=== PATIENT | female | born 1960 | race Caucasian/White ===

== ENCOUNTER 2019-01-19 00:20 | Inpatient (IN) | payer OTHER, SELFPAY ==
[2019-01-19] MEDS ORDERED: ONDANSETRON 4 MG/2 ML VIAL ONE ×3 (00:56→05:53)
[2019-01-19] MEDS ORDERED: MORPHINE 4 MG/ML SYR ONE ×3 (00:56→22:09)
[2019-01-19] MEDS ORDERED: NA CHLORIDE 0.9% 1,000 ML ONE ×2 (00:56→03:35)
[2019-01-19 01:20] LABS: Absolute Lymphocytes (CBC) 1.6 K/uL (0.7-4.9); Absolute Monocytes 0.8 K/uL (0.1-1.3); Absolute Neutrophil 10.3 K/uL (1.8-8.0); Basophils % 0.2 % (0-1.3); Eosinophils % 0.1 % (0-4.4); Hematocrit 39.9 % (36.0-45.0); Lymphocytes % 12.4 % (15.3-44.8); MPV 9.6 fL (7.6-11.3); RBC Red Blood Cell Count 4.65 M/uL (3.86-4.86)
[2019-01-19 01:32] LABS: Albumin 3.8 g/dL (3.4-5.0); Bilirubin Direct 0.2 mg/dL (0-0.2); Bilirubin Total 0.9 mg/dL (0.2-1.0); Potassium 3.8 mmol/L (3.5-5.1); Protein, Total 7.4 g/dL (6.4-8.2)
--- NOTE | 2019-01-19 02:58 | ER ---
Nurse's Notes [facility] Name: Leisa Arguello Age: 58 yrs Sex: Female : 1960 Arrival Date: 01/19/2019 Time: 00:24 Bed 6 Private MD: Filiberto Naqvi V Diagnosis: Diverticulitis of large intestine with perforation and abscess Presentation: 01/19 00:38 Presenting complaint: Patient states: bloating, lower abd pain since last night, ak1 01/17/19. pt denies N/V/D. pt denies urinary s/s. Transition of care: patient was not received from another setting of care. Onset of symptoms was January 17, 2019. Risk Assessment: Do you want to hurt yourself or someone else? Patient reports no desire to harm self or others. Initial Sepsis Screen: Does the patient meet any 2 criteria? Systolic BP < 90 mmHg. HR > 90 bpm. Care prior to arrival: None. 00:38 Method Of Arrival: Ambulatory ak1 00:38 Acuity: ANNA 3 ak1 01:28 Initial Sepsis Screen: Does the patient have a suspected source of infection? No. tl2 Patient's initial sepsis screen is negative. Triage Assessment: 00:40 General: Appears uncomfortable, Behavior is calm, cooperative. Pain: Complains of pain ak1 in suprapubic area, right lower quadrant and left lower quadrant. EENT: No signs and/or symptoms were reported regarding the EENT system. Neuro: No deficits noted. Cardiovascular: No deficits noted. Respiratory: No deficits noted. GI: Reports lower abdominal pain. : No signs and/or symptoms were reported regarding the genitourinary system. Derm: No signs and/or symptoms reported regarding the dermatologic system. Musculoskeletal: No signs and/or symptoms reported regarding the musculoskeletal system. Historical: - Allergies: 00:40 Codeine; ak1 00:40 PENICILLINS; ak1 - Home Meds: 00:40 None [Active]; ak1 - PMHx: 00:40 Diverticulitis; Kidney stones; ak1 - PSHx: 00:40 Lithotripsy; Cholecystectomy; Appendectomy; ak1 - Immunization history:: Adult Immunizations unknown. - Social history:: Smoking status: Patient/guardian denies using tobacco, Patient uses alcohol, weekly. - Ebola Screening: : No symptoms or risks identified at this time. Screenin:28 Abuse screen: Denies threats or abuse. Nutritional screening: No deficits noted. tl2 Tuberculosis screening: No symptoms or risk factors identified. Fall Risk None identified. Assessment: 00:40 General: see triage assessment. tl2 02:19 Reassessment: Patient appears in no apparent distress at this time. Patient and/or tl2 family updated on plan of care and expected duration. Pain level reassessed. Patient is alert, oriented x 3, equal unlabored respirations, skin warm/dry/pink. pt returned from CT, awaiting results Patient states feeling better. 04:00 Reassessment: Patient appears in no apparent distress at this time. Patient and/or tl2 family updated on plan of care and expected duration. Pain level reassessed. Patient is alert, oriented x 3, equal unlabored respirations, skin warm/dry/pink. 05:30 Reassessment: Patient appears in no apparent distress at this time. Patient and/or tl2 family updated on plan of care and expected duration. Pain level reassessed. Patient is alert, oriented x 3, equal unlabored respirations, skin warm/dry/pink. pt c/o nausea, new order see MAR. Vital Signs: 00:37 BP 136 / 73; Pulse 103; Resp 18; Temp 99.5(O); Pulse Ox 97% on R/A; Weight 83.91 kg ak1 (R); Height 5 ft. 5 in. (165.10 cm) (R); Pain 8/10; 01:27 BP 119 / 65; Pulse 99; Resp 18; Pulse Ox 97% on R/A; tl2 02:18 BP 126 / 73; Pulse 95; Resp 18; Pulse Ox 96% on R/A; tl2 03:53 BP 131 / 77; Pulse 73; Resp 18; Temp 98.6; Pulse Ox 97% on R/A; tl2 00:37 Body Mass Index 30.79 (83.91 kg, 165.10 cm) ak1 ED Course: 00:24 Patient arrived in ED. es 00:26 Filiberto Naqvi MD is Private Physician. es 00:30 Xavier Caicedo MD is Attending Physician. tw4 00:37 Arm band placed on Patient placed in an exam room, on a stretcher, on pulse oximetry, ak1 Patient notified of wait time. 00:39 Triage completed. ak1 00:41 Patient has correct armband on for positive identification. Placed in gown. Bed in low ak1 position. Call light in reach. Side rails up X 1. Adult w/ patient. Pulse ox on. NIBP on. 00:41 Inserted saline lock: 20 gauge in right antecubital area, using aseptic technique. tl2 Blood collected. 01:04 Evette Higginbotham, RN is Primary Nurse. ak1 01:10 Radiology exam delayed due to lab results not completed at this time. (BUN/Creatinine). kw1 02:34 CT Abd/Pelvis - W/Contrast In Process Unspecified. EDMS 02:57 Brigette Elliott MD is Hospitalizing Provider. tw4 04:43 Hospitalizing Provider role handed off by Brigette Elliott MD tw4 04:43 Filiberto Naqvi MD is Hospitalizing Provider. tw4 06:08 No provider procedures requiring assistance completed. Patient admitted, IV remains in tl2 place. Administered Medications: 01:26 Drug: NS 0.9% 1000 ml Route: IV; Rate: 1000 ml; Site: right antecubital; tl2 02:30 Follow up: IV Status: Completed infusion; IV Intake: 1000ml tl2 01:27 Drug: morphine 4 mg Route: IVP; Site: right antecubital; tl2 02:00 Follow up: Response: No adverse reaction; Pain is decreased tl2 01:27 Drug: Zofran 4 mg Route: IVP; Site: right antecubital; tl2 02:00 Follow up: Response: No adverse reaction; Nausea is decreased tl2 03:45 Drug: Flagyl 500 mg Volume: 100 ml; Route: IVPB; Rate: 200 ml/hr; Infused Over: 30 tl2 mins; Site: right antecubital; 04:45 Follow up: IV Status: Completed infusion; IV Intake: 100ml tl2 03:46 Drug: TORadol 30 mg Route: IVP; Site: right antecubital; tl2 04:30 Follow up: Response: No adverse reaction; Pain is decreased tl2 03:47 Drug: Zofran 4 mg Route: IVP; Site: right antecubital; tl2 04:57 Follow up: Response: No adverse reaction tl2 03:48 Drug: NS 0.9% 1000 ml Route: IV; Rate: 125 ml/hr; Site: right antecubital; tl2 06:03 Follow up: IV Status: Infusion continued upon admission tl2 04:57 Drug: LevaQUIN 500 mg Volume: 100 ml; Route: IVPB; Infused Over: 60 mins; Site: right tl2 antecubital; 05:45 Follow up: IV Status: Completed infusion; IV Intake: 100ml tl2 05:45 Drug: Zofran 4 mg Route: IVP; Site: right antecubital; tl2 06:03 Follow up: Response: No adverse reaction tl2 06:03 Not Given (Patient Refused): morphine 4 mg IVP once tl2 Intake: 02:30 IV: 1000ml; Total: 1000ml. tl2 04:45 IV: 100ml; Total: 1100ml. tl2 05:45 IV: 100ml; Total: 1200ml. tl2 Outcome: 02:57 Decision to Hospitalize by Provider. tw4 05:30 Admitted to Med/surg accompanied by tech, via wheelchair, room 223, with chart, Report tl2 called to ANUPAMA Cunningham 05:30 Condition: stable 05:30 Discharge instructions given to patient, Instructed on the need for admit. 06:11 Patient left the ED. tl2 Signatures: Dispatcher [employer] Diamond Brasher Amber, RN RN ak1 Yanira Roberts RN RN tl2 Keiko Esparza1 Xavier Caicedo MD MD tw4
--- NOTE | 2019-01-19 02:58 | EDPHYS ---
Physician Documentation [facility] Name: Leisa Arguello Age: 58 yrs Sex: Female : 1960 Arrival Date: 01/19/2019 Time: 00:24 Bed 6 Private MD: Filiberto Naqvi V ED Physician Xavier Caicedo HPI: 01/19 03:14 This 58 yrs old Female presents to ER via Ambulatory with complaints of tw4 Fever, Abdominal Pain, ABD BLOTEING. 03:14 The patient reports fever, not measured (subjective). Onset: The symptoms/episode tw4 began/occurred today. Modifying factors: there are no obvious modifying factors. Associated signs and symptoms: Pertinent positives: abdominal pain. Severity of symptoms: At their worst the symptoms were moderate in the emergency department the symptoms are unchanged. The patient has not experienced similar symptoms in the past. 03:16 The patient presents with abdominal pain that is diffuse. Onset: The symptoms/episode tw4 began/occurred today. The symptoms do not radiate. Associated signs and symptoms: Pertinent positives: nausea and vomiting. The symptoms are described as crampy. Modifying factors: The symptoms are alleviated by supine position, the symptoms are aggravated by movement, pressure. Severity of pain: At its worst the pain was moderate in the emergency department the pain is unchanged. Historical: - Allergies: 00:40 Codeine; ak1 00:40 PENICILLINS; ak1 - Home Meds: 00:40 None [Active]; ak1 - PMHx: 00:40 Diverticulitis; Kidney stones; ak1 - PSHx: 00:40 Lithotripsy; Cholecystectomy; Appendectomy; ak1 - Immunization history:: Adult Immunizations unknown. - Social history:: Smoking status: Patient/guardian denies using tobacco, Patient uses alcohol, weekly. - Ebola Screening: : No symptoms or risks identified at this time. ROS: 03:14 Cardiovascular: Negative for chest pain, palpitations, and edema, Respiratory: Negative tw4 for shortness of breath, cough, wheezing, and pleuritic chest pain, Back: Negative for injury and pain, MS/Extremity: Negative for injury and deformity, Skin: Negative for injury, rash, and discoloration, Neuro: Negative for headache, weakness, numbness, tingling, and seizure. 03:14 Constitutional: Positive for fever, Negative for body aches, chills, fatigue, malaise, poor PO intake, weight loss. 03:14 Abdomen/GI: Positive for abdominal pain, Negative for nausea and vomiting, nausea, vomiting, and diarrhea, nausea, vomiting, abdominal cramps, abdominal distension, anorexia, dysphagia, hematemesis, black/tarry stool, rectal pain. Exam: 03:14 Constitutional: This is a well developed, well nourished patient who is awake, alert, tw4 and in no acute distress. Head/Face: Normocephalic, atraumatic. Chest/axilla: Normal chest wall appearance and motion. Nontender with no deformity. No lesions are appreciated. Cardiovascular: Regular rate and rhythm with a normal S1 and S2. No gallops, murmurs, or rubs. Normal PMI, no JVD. No pulse deficits. Respiratory: Lungs have equal breath sounds bilaterally, clear to auscultation and percussion. No rales, rhonchi or wheezes noted. No increased work of breathing, no retractions or nasal flaring. Back: No spinal tenderness. No costovertebral tenderness. Full range of motion. Skin: Warm, dry with normal turgor. Normal color with no rashes, no lesions, and no evidence of cellulitis. MS/ Extremity: Pulses equal, no cyanosis. Neurovascular intact. Full, normal range of motion. Neuro: Awake and alert, GCS 15, oriented to person, place, time, and situation. Cranial nerves II-XII grossly intact. Motor strength 5/5 in all extremities. Sensory grossly intact. Cerebellar exam normal. Normal gait. 03:14 Abdomen/GI: Inspection: abdomen appears normal, Bowel sounds: diminished, Palpation: moderate abdominal tenderness, in all quadrants. Vital Signs: 00:37 BP 136 / 73; Pulse 103; Resp 18; Temp 99.5(O); Pulse Ox 97% on R/A; Weight 83.91 kg ak1 (R); Height 5 ft. 5 in. (165.10 cm) (R); Pain 8/10; 01:27 BP 119 / 65; Pulse 99; Resp 18; Pulse Ox 97% on R/A; tl2 02:18 BP 126 / 73; Pulse 95; Resp 18; Pulse Ox 96% on R/A; tl2 03:53 BP 131 / 77; Pulse 73; Resp 18; Temp 98.6; Pulse Ox 97% on R/A; tl2 00:37 Body Mass Index 30.79 (83.91 kg, 165.10 cm) ak1 MDM: 00:30 Patient medically screened. tw4 03:14 Differential diagnosis: viral Infection, bacterial infection. Data reviewed: vital tw4 signs, nurses notes. 03:16 Data interpreted: site monitor: rhythm is normal sinus rhythm, Pulse oximetry: tw4 Interpretation: normal. Counseling: I had a detailed discussion with the patient and/or guardian regarding: the historical points, exam findings, and any diagnostic results supporting the discharge/admit diagnosis, lab results, radiology results. Physician consultation: Brigette Elliott MD was contacted at 02:58. Other consultation: Dr Pepper from [facility] \[id number] consulted will see in the am. ED course: CT scan revealed diverticulitis of the sigmoid colon with micro perforation and abscess measuring 1.7cm. Pt placed on antibiotics and admission ordered for inpatient treatment. 01/19 00:37 Order name: Basic Metabolic Panel 01/19 00:37 Order name: CBC with Diff 01/19 00:37 Order name: Creatinine for Radiology 01/19 00:37 Order name: Hepatic Function 01/19 00:37 Order name: Lipase 01/19 00:37 Order name: Urine Microscopic Only 01/19 00:37 Order name: CT Abd/Pelvis - W/Contrast 01/19 02:12 Order name: Urine Dipstick--Ancillary (enter results) [facility] 01/19 02:12 Order name: Urine --Ancillary (enter results) ga01/19 00:37 Order name: IV Saline Lock; Complete Time: 00:41 01/19 00:37 Order name: Labs collected and sent; Complete Time: 00:41 01/19 00:37 Order name: Urine Dipstick-Ancillary (obtain specimen); Complete Time: 01:05 01/19 04:48 Order name: CONS Pharmacy Consult [facility] 01/19 04:48 Order name: NPO EDOK Administered Medications: 01:26 Drug: NS 0.9% 1000 ml Route: IV; Rate: 1000 ml; Site: right antecubital; tl2 02:30 Follow up: IV Status: Completed infusion; IV Intake: 1000ml tl2 01:27 Drug: morphine 4 mg Route: IVP; Site: right antecubital; tl2 02:00 Follow up: Response: No adverse reaction; Pain is decreased tl2 01:27 Drug: Zofran 4 mg Route: IVP; Site: right antecubital; tl2 02:00 Follow up: Response: No adverse reaction; Nausea is decreased tl2 03:45 Drug: Flagyl 500 mg Volume: 100 ml; Route: IVPB; Rate: 200 ml/hr; Infused Over: 30 tl2 mins; Site: right antecubital; 04:45 Follow up: IV Status: Completed infusion; IV Intake: 100ml tl2 03:46 Drug: TORadol 30 mg Route: IVP; Site: right antecubital; tl2 04:30 Follow up: Response: No adverse reaction; Pain is decreased tl2 03:47 Drug: Zofran 4 mg Route: IVP; Site: right antecubital; tl2 04:57 Follow up: Response: No adverse reaction tl2 03:48 Drug: NS 0.9% 1000 ml Route: IV; Rate: 125 ml/hr; Site: right antecubital; tl2 06:03 Follow up: IV Status: Infusion continued upon admission tl2 04:57 Drug: LevaQUIN 500 mg Volume: 100 ml; Route: IVPB; Infused Over: 60 mins; Site: right tl2 antecubital; 05:45 Follow up: IV Status: Completed infusion; IV Intake: 100ml tl2 05:45 Drug: Zofran 4 mg Route: IVP; Site: right antecubital; tl2 06:03 Follow up: Response: No adverse reaction tl2 06:03 Not Given (Patient Refused): morphine 4 mg IVP once tl2 Disposition: 01/19/19 02:57 Hospitalization ordered by Filiberto Naqvi for Inpatient Admission. Preliminary diagnosis is Diverticulitis of large intestine with perforation and abscess. - Bed requested for Telemetry/MedSurg (Inpatient). - Status is Inpatient Admission. tl2 - Condition is Stable. - Problem is new. - Symptoms are unchanged. UTI on Admission? No Signatures: Dispatcher [employer] EDMS Evette Higginbotham RN RN ak1 Milla Lemon RN RN Yanira Roberts RN RN tl2 Xavier Caicedo MD MD tw4 Corrections: (The following items were deleted from the chart) 04:44 02:57 Hospitalization Ordered by Brigette Elliott MD for Inpatient Admission. Preliminary tw4 diagnosis is Diverticulitis of large intestine with perforation and abscess. Bed requested for Telemetry/MedSurg (Inpatient). Status is Inpatient Admission. Condition is Stable. Problem is new. Symptoms are unchanged. UTI on Admission? No. tw4 05:07 04:44 01/19/2019 02:57 Hospitalization Ordered by Filiberto Naqvi MD for Inpatient cg Admission. Preliminary diagnosis is Diverticulitis of large intestine with perforation and abscess. Bed requested for Telemetry/MedSurg (Inpatient). Status is Inpatient Admission. Condition is Stable. Problem is new. Symptoms are unchanged. UTI on Admission? No. tw4 05:07 05:07 01/19/2019 02:57 Hospitalization Ordered by Filiberto Naqvi MD for Inpatient cg Admission. Preliminary diagnosis is Diverticulitis of large intestine with perforation and abscess. Bed requested for Telemetry/MedSurg (Inpatient). Status is Inpatient Admission. Condition is Stable. Problem is new. Symptoms are unchanged. UTI on Admission? No. cg 06:11 05:07 01/19/2019 02:57 Hospitalization Ordered by Filiberto Naqvi MD for Inpatient tl2 Admission. Preliminary diagnosis is Diverticulitis of large intestine with perforation and abscess. Bed requested for Telemetry/MedSurg (Inpatient). Status is Inpatient Admission. Condition is Stable. Problem is new. Symptoms are unchanged. UTI on Admission? No. cg
[2019-01-19 03:07] LABS: Urine Bacteria <20 /HPF (<20); Urine Culture Reflex Order NOT NEEDED; Urine Mucus 1+ /HPF (NONE SEEN); Urine RBC <5 /HPF (NONE SEEN)
[2019-01-19 03:07] LABS: Urine Blood TRACE (NEG); Urine Glucose NEGATIVE (NEG); Urine Protein NEGATIVE (NEG); Urine pH 5.5 (5.0-7.0)
[2019-01-19] MEDS ORDERED: Levofloxacin500mg IV 500 MG/100 ML BAG IV ONE (03:35)
[2019-01-19] MEDS ORDERED: KETOROLAC 30 MG/ML INJ ONE (03:35)
[2019-01-19] MEDS ORDERED: METRONIDAZOLE 500mg IVPB 500 MG/100 ML BAG IV ONE (03:35)
[2019-01-19] MEDS ORDERED: MORPHINE 4 MG/ML SYR IV ONE (06:06)
[2019-01-19] MEDS ORDERED: PROMETHAZINE 25 MG/ML VIAL IV ONE (06:27)
--- NOTE | 2019-01-19 09:35 | P.SSS ---
Patient History Date of Service: 01/19/19 Reason for admission: ABDOMEN PAIN. History of Present Illness: BLANE HAS HAD DIVERTICULITIS ONCE BEFORE. SHE HAS HAD COLONOSCOPY BY DR. BEASLEY THAT CONFIRMED DIVERTICULOSIS A FEW MONTHS AGO. SHE TRAVELS TO WORK WITH HER . SHE COMES TO AFTER 6 MONTHS. WHILE DRIVING BACK SHE STARTS TO FEEL BAD WITH PAIN IN ABDOMEN LOWER PART. SHE HAS NO DIARRHEA, VOMITING OR HEMATOCHESIA. SHE IS FEELING GREAT AFTER ONE DOSE OF ABX. SHE IS HERE JUST FOR TWO DAYS TO SEE HER DAUGHTER AND SHE WANTS TO GO HOME. I TOLD HER THAT SHE COULD LONG SHE SEES A SURGEON BEFORE. SHE HAS NO PAIN ANY LONGER. SHE IS VERY EAGER TO GO HOME. SHE UNDERSTANDS THAT USUALLY WE KEEP PATIENTS ABOUT TWO DAYS FOR THIS KIND OF MICROPERFORATION WITH DIVERTICULITIS. Allergies codeine Allergy (Verified 01/19/19 05:26) Hives Penicillins Allergy (Verified 01/19/19 05:26) Hives Home Medications: Ciprofloxacin HCl [Cipro 500 MG Tablet] 500 mg PO BID #28 tab 01/19/19 metroNIDAZOLE [Flagyl] 500 mg PO Q8H #42 tablet 01/19/19 - Past Medical/Surgical History Has patient received pneumonia vaccine in the past: No Diabetic: No -: Kidney Stones -: Appendectomy -: Lithotripsy - Social History Smoking Status: Never smoker Alcohol use: Yes Caffeine use: Yes Place of Residence: Home Review of Systems 10-point ROS is otherwise unremarkable Physical Examination - Vital Signs Temperature: 97.2 F Blood Pressure: 136/82 Pulse: 86 Respirations: 18 Pulse Ox (%): 97 - Physical Exam General: Alert, In no apparent distress HEENT: Atraumatic, PERRLA, Mucous membr. moist/pink, EOMI, Sclerae nonicteric Neck: Supple, 2+ carotid pulse no bruit, No LAD, Without JVD or thyroid abnormality Respiratory: Clear to auscultation bilaterally, Normal air movement Cardiovascular: Regular rate/rhythm, Normal S1 S2 Gastrointestinal: Normal bowel sounds, No tenderness Musculoskeletal: No tenderness Integumentary: No rashes Neurological: Normal gait, Normal speech, Normal strength at 5/5 x4 extr, Normal tone, Normal affect Lymphatics: No axilla or inguinal lymphadenopathy Other Physical/Emotional Findings: NO SIGNS OF ANXIETY, DEPRESSION ETC. SHE SAYS WITH HER HABIT SAME THING ABOUT 3-4 TIMES UNLESS STOPPED. - Studies Laboratory Data (last 24 hrs) 01/19/19 00:45: Creatinine 0.75 01/19/19 00:45: WBC 12.7 H, Hgb 13.3, Hct 39.9, Plt Count 201 01/19/19 00:45: Sodium 136, Potassium 3.8, BUN 7, Creatinine 0.72, Glucose 119 H , Total Bilirubin 0.9, AST 11 L, ALT 17, Alkaline Phosphatase 108, Lipase 50 L - Diagnosis (Problem(s)) (1) Acute diverticulitis Current Visit: Yes Status: Acute Plan: IV ABX AND ORAL SHE WANTS TO GO HOME. SHE KNOWS SHE HAS TO FOLLOW UP AND SHE CAN RETURN TO ER IF WORSE. (2) Diverticulitis of colon with perforation Current Visit: Yes Status: Acute Plan: ABOVE. Qualifiers: Diverticulitis bleeding: without bleeding Qualified Code(s): K57.20 - Diverticulitis of large intestine with perforation and abscess without bleeding - Disposition Disposition: ROUTINE DISCHARGE Condition: FAIR Patient Discharge Instructions: AVOID ALL SEEDS IN FOOD. NEXT TWO WEEKS EAT LIGHT LIKE EGGS, CHEW WELL ALL THE TIME, MAKE THE FOOD PUREED IN YOUR MOUTH BEFORE YOU SWALLOW. IDEALLY I WILL KEEP YOU ONE MORE DAY BUT YOU HAVE TO GO OUT OF TOWN, I AM MAKING AN EXCEPTION. Diet: Alna
--- NOTE | 2019-01-19 11:07 | CON ---
Reason: Abdominal pain. History Of Present Illness: The patient is a 58-year-old female, presents with acute onset of left l ower quadrant abdominal pain after driving 6 hours to town to visit her daughter. She had a colonosc opy last year, and was found to have diverticulosis. She has had a previous attack of diverticulitis in the past. She denies any diarrhea, constipation, or blood in her stool. No nausea or vomiting. She feels better after being admitted. She wants to go home. She denies significant pain. No sore throat, runny nose, cough, headaches, or dizziness. She did have fever at home and does not now. Review of Systems: Otherwise unremarkable. Past Medical History: Significant for kidney stones. Past Surgical History: Significant for appendectomy, lithotripsy. Allergies: INCLUDE CODEINE AND PENICILLIN. Social History: She does not smoke. Drinks occasionally. Family History: Noncontributory. Physical Examination: Vital Signs: Currently are stable. She is afebrile. General: She is awake, alert, oriented x3. Head and Neck: Cranial nerves 2 through 12 are grossly within normal. No neck masses. No JVD. Thr oat clear. Neck is supple. Chest: Clear. Heart: S1 and S2. Abdomen: Soft, nondistended. Minimal tenderness in the left lower quadrant suprapubic region. No r ebound, rigidity, or guarding. Extremities: Adequately perfused. Nontender. Neuro: Nonfocal. Laboratory Data: White count is 12.7 with slight left shift. Chemistry reviewed, essentially unrema rkable. CT of the abdomen and pelvis shows findings consistent with sigmoid diverticulitis. There i s a pocket of air of 1.7 cm concerning for microperforation with a small abscess. Assessment: Acute sigmoid diverticulitis with possible microperforation. Recommendation: There is evidence of a possible microperforation. I would recommend the patient sta y in the hospital at least another 24 hours. We will start her on clear liquids and see how she does , and if her white count improves, and clinically she is stable, then she can be discharged tomorrow on oral antibiotics. She was advised that she needs to avoid foods that aggravate diverticulosis, an d dietitian will give her a list of foods to eat. She was also advised that when she goes back to he r home, to see her doctor and get a referral to a colorectal surgeon as this is the second or third a ttack. The patient would benefit from a segmental colon resection. All of these findings were discu ssed in detail with the patient and . WEI/INDIRA Voice ID: [id number] Report ID: [id number]
[2019-01-19] MEDS: METRONIDAZOLE 500mg IVPB 500 MG/100 ML BAG IV SCH ×3 (11:21→23:31)
[2019-01-19] MEDS: CIPROFLOXACIN 400mg IV 400 MG/200 ML BAG IV SCH (21:03)
[2019-01-19] MEDS ORDERED: PROMETHAZINE 25 MG/ML VIAL ONE (22:07)
[2019-01-20] MEDS: METRONIDAZOLE 500mg IVPB 500 MG/100 ML BAG IV SCH (05:45)
[2019-01-20 06:59] LABS: Absolute Lymphocytes (CBC) 0.9 K/uL (0.7-4.9); Absolute Monocytes 0.3 K/uL (0.1-1.3); Absolute Neutrophil 5.2 K/uL (1.8-8.0); Basophils % 0.2 % (0-1.3); Hematocrit 36.4 % (36.0-45.0); Lymphocytes % 13.4 % (15.3-44.8); MPV 9.5 fL (7.6-11.3); Monocytes % 4.9 % (3.3-12.3); RBC Red Blood Cell Count 4.15 M/uL (3.86-4.86)
[2019-01-20] MEDS: CIPROFLOXACIN 400mg IV 400 MG/200 ML BAG IV SCH (09:01)
--- NOTE | 2019-01-20 14:12 | PN ---
Date of Progress Note: 01/20/2019 Subjective: The patient is awake, alert, feels a little better, tolerating clear liquids. Objective: Vital Signs: Stable, afebrile. White count is normal. Abdomen: Benign. Assessment: Acute sigmoid diverticulitis. This patient is from out of town. She wants to leave [facility]. We will, on her request, give her Cipro and Flagyl as ordered. Nutritional education will be pr ovided prior to discharge and the patient needs some Zofran and stool softeners, which will be given as well. She is to follow up with her GI doctor in [facility]. It was recommended that the patient to have an elective sigmoid resection to prevent future recurrence of this disease. WEI/INDIRA Voice ID: [id number] Report ID: [id number]
--- NOTE | 2019-01-21 11:35 | RAD REPORT ---
EXAM DESCRIPTION: CT - Abdomen Pelvis W Contrast - 01/19/2019 2:34 am CLINICAL HISTORY: The patient is 58 years old and is Female; ABD PAIN TECHNIQUE: Axial computed tomography images of the abdomen and pelvis with intravenous contrast. S agittal and coronal reformatted images were created and reviewed. This CT exam was performed using one or more of the following dose reduction techniques: automated exposure control, adjustment of t he mA and/or kV according to patient size, and/or use of iterative reconstruction technique. COMPARISON: None. FINDINGS: LUNG BASES: Unremarkable. No mass. No consolidation. ABDOMEN: LIVER: Partial visualization of subcentimeter right hepatic hypodensity (series 4, image 1). 1.5 c m left hepatic cyst is also seen. GALLBLADDER AND BILE DUCTS: Prior cholecystectomy. No ductal dilation. PANCREAS: Unremarkable. No mass. No ductal dilation. SPLEEN: Unremarkable. No splenomegaly. ADRENALS: Unremarkable. No mass. KIDNEYS AND URETERS: Multiple nonobstructive renal cyst is seen bilaterally. Largest of which laurence uring 5 mm in the right upper pole. No hydronephrosis. Area of scarring involving the posterior aspect of the superior pole of the right kidney. STOMACH AND BOWEL: Sigmoid diverticulosis with peridiverticular stranding and wall thickening. Sma ll gas-containing collection just superior to thickened sigmoid measuring approximately 1.7 cm (serie s 603, image 50). Surgical clips are seen in this region. The appendix is not seen. No obstruction. PELVIS: APPENDIX: See above. BLADDER: The bladder is decompressed. REPRODUCTIVE: Suggested small nabothian cyst ABDOMEN and PELVIS: INTRAPERITONEAL SPACE: Unremarkable. No free air. No significant fluid collection. BONES/JOINTS: No acute fracture. No dislocation. SOFT TISSUES: Small fat-containing umbilical hernia. VASCULATURE: Unremarkable. No abdominal aortic aneurysm. LYMPH NODES: Unremarkable. No enlarged lymph nodes. IMPRESSION: 1. Advanced sigmoid diverticulitis with a gas containing collection measuring 1.7 cm c oncerning for microperforation and abscess formation. 2. Nonobstructive bilateral renal calculi. Scarring of the posterior right superior pole. 3. Prior cholecystectomy. 4. Small hepatic cysts. THIS REPORT CONTAINS FINDINGS THAT MAY BE CRITICAL TO PATIENT'S CARE: The findings were verbally discussed via telephone conference with Xavier Caicedo by Dr. Lujan on 01/19/2019 2:44 AM CDT. The results were acknowledged and understood. Electronically signed by: Dennis Lujan DO 01/19/2019 2:45 AM CDT Due to temporary technical issues with the PACS/Fluency reporting system, reports are being signed by the in house radiologist as a courtesy to ensure prompt reporting. The interpreting radiologist is f ully responsible for the content of the report.
== END 2019-01-20 11:03 | disposition home or self-care (01) | DRG 392 ==
LOC: ER 00:20 → ERHOLD 04:45 → 2ND 05:47
PROVIDERS: ADMIT Internal Medicine; ATTEND Internal Medicine
DX: K57.20 Diverticulitis of large intestine with perforation and abscess without bleeding (principal); Z88.0 Allergy status to penicillin; Z87.442 Personal history of urinary calculi
CPT/HCPCS: 36415; 74177; 80048; 80076; 81003; 81015; 81025; 83690; 85025; 96361; 96365; 96367; 96375; 99285; J0744; J2405; J2550; J7030; Q9967